=== PATIENT | female | born 1980 | race African-American/Black ===

== ENCOUNTER 2016-08-08 08:01 | Emergency (ER) | payer MEDICAID ==
[~2016-08-08] VITALS: Ht 157.5 cm; Wt 98.0 kg
[~2016-08-08 08:01] MED LIST: KENALOG 0.5% CR15 GM APPLIC; PREDNISONE20 MG ORAL
[2016-08-08] MEDS ORDERED: ACETAMINOPHEN-1 EAC1 ORAL (08:56)
[2016-08-08] MEDS ORDERED: IBUPROFEN800 MG ORAL (08:56)
[2016-08-08] MEDS ORDERED: Ketorolac 60mg Inj IM ONE (09:00)
[2016-08-08 09:21] VITALS: BP 131/89
--- NOTE | 2016-08-08 09:47 | Emergency Room Report ---
History of Present Illness General Chief Complaint: Lower Extremity Injury Source: Patient Present Illness HPI 35 YOF with left knee pain for 5 days. Denies trauma. Pain worse when standing for long time. Pain worse with flexing. Put on 20lbs recently because "I like to eat a lot." Taking 400mg ibuprofen once daily. Mother with history of OA. 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 Denies pain raditing to left hip or down left leg. Denies swelling or redness or warmth to left knee. Allergies: Coded Allergies: LATEX (Verified Allergy, Mild, 04/02/15) PENICILLIN G (Verified Allergy, Mild, 04/02/15) Patient History Past Medical History: none Pertinent Family History: none Social History: Denies: alcohol use, drug use, smoking Last Menstrual Period: 07/22/16 Now: No : 4 Para: 1 Immunizations: UTD Reviewed Nursing Documentation: PMH: Agreed, PSxH: Agreed Nursing Documentation-PMH Hx Cardiac Problems: No - ECZEMA Hx Asthma: Yes Review of Systems All Other Systems: negative except mentioned in HPI Physical Exam Vital Signs Date Time Temp Pulse Resp B/P Pulse Ox O2 Delivery O2 Flow Rate FiO2 08/08/16 08:12 98.4 86 18 138/85 100 Room Air Sp02 EP Interpretation: reviewed, normal General Appearance: normal inspection, well appearing, no apparent distress, alert, GCS 15, non-toxic, obese Head: normocephalic, atraumatic Eyes: bilateral eye EOMI, bilateral eye PERRL ENT: normal ENT inspection, hearing grossly normal, normal voice Neck: normal inspection, full range of motion, supple, no bony tend Respiratory: normal inspection, lungs clear, normal breath sounds, no respiratory distress, no retraction, no wheezing Cardiovascular #1: regular rate, rhythm, no edema Gastrointestinal: normal inspection, normal bowel sounds, non tender, soft, no guarding, no hernia Genitourinary: no CVA tenderness Musculoskeletal: normal inspection, back normal, normal range of motion, Jonh' s Sign negative, other - Left knee: No obvious swelling, redness or warmth in compared to right. ROM intact. No effusion. Neurologic: normal inspection, alert, oriented x3, responsive, pillow filler III-XII nml as tested, motor strength/tone normal, speech normal Medical Decision Making Diagnostic Impression: Primary Impression: Left knee pain Qualified Codes: M25.562 - Pain in left knee ER Course Likely MSK pain from recent significant weight increase No sign of septic joint or cellulitis Advised NSAIDs, ice, weight loss PMD followup DC home Last Vital Signs Date Time Temp Pulse Resp B/P Pulse Ox O2 Delivery O2 Flow Rate FiO2 08/08/16 09:30 98.5 08/08/16 09:21 73 18 131/89 100 Room Air Status: improved Disposition: HOME, SELF-CARE Condition: Improved Scripts Acetaminophen With Codeine (T#3) (TYLENOL #3 TAB*) Y Tab 1 TAB ORAL Q8H Y for For Pain, #30 TAB Prov: YOLIE DAUGHERTY M.D. 08/08/16 Ibuprofen* (MOTRIN*) 800 Mg Tablet 800 MG ORAL THREE TIMES A DAY for For Pain, #30 TAB 0 Refills Prov: YOLIE DAUGHERTY M.D. 08/08/16 Referrals: [facility]ERR[facility] (PCP) Patient Instructions: Musculoskeletal Pain Additional Instructions: - apply ice to area of pain 3-4x a day for pain - Alternate Ibuprofen with Tylenol #3 every 4-6 hours for pain, take with food - T#3 can be best taken at night, will help you sleep - Do NOT drive after taking T3 - Try your best to lose weight to reduce the weight/pressure on your knee YOLIE DAUGHERTY M.D. Aug 08, 2016 09:47
== END 2016-08-08 09:45 | disposition home or self-care (01) ==
LOC: EMR 08:59
DX: M25.562 Pain in left knee (principal); Z88.0 Allergy status to penicillin; Z91.040 Latex allergy status
CPT/HCPCS: 96372; 99284

== ENCOUNTER 2017-12-04 00:14 | Emergency (ER) | payer MEDICAID ==
[~2017-12-04] VITALS: Ht 157.5 cm; Wt 81.6 kg
[~2017-12-04 00:14] MED LIST changes: +ACETAMINOPHEN-1 EAC1 ORAL; +IBUPROFEN800 MG ORAL
--- NOTE | 2017-12-04 00:21 | Emergency Room Report ---
History of Present Illness General Chief Complaint: Dyspnea/Respdistress Source: Patient Present Illness HPI Patient 37-year-old female who presented after increased difficulty breathing and abdominal pain. Patient was having increased had difficulty breathing and abdominal pain. Patient reports having prior history of asthma. She takes albuterol. She had prior history of eczema. The patient noted to have allergy to latex as well as penicillin. Allergies: Coded Allergies: SHELLFISH DERIVED (Verified Allergy, Severe, Anaphylaxis, 12/04/17) LATEX (Verified Allergy, Mild, 12/04/17) PENICILLIN G (Verified Allergy, Mild, 12/04/17) PEANUT (Verified Allergy, Unknown, Shortness of Breath, 12/04/17) Patient History Past Medical History: see triage record Last Menstrual Period: unk Reviewed Nursing Documentation: PMH: Agreed; PSxH: Agreed Nursing Documentation-PMH Past Medical History: No History, Except For Hx Cardiac Problems: No - ECZEMA Hx Asthma: Yes Review of Systems All Other Systems: negative except mentioned in HPI Physical Exam Vital Signs Date Time Temp Pulse Resp B/P (MAP) Pulse Ox O2 Delivery O2 Flow Rate FiO2 12/04/17 00:17 123 24 100 Room Air Sp02 EP Interpretation: reviewed, normal General Appearance: normal inspection, well appearing, no apparent distress, alert, GCS 15 Head: atraumatic ENT: normal ENT inspection, hearing grossly normal, normal voice Neck: normal inspection, full range of motion, supple, no bony tend Respiratory: normal inspection, lungs clear, normal breath sounds, no respiratory distress, no retraction, no wheezing Cardiovascular #1: regular rate, rhythm, no edema Gastrointestinal: normal inspection, normal bowel sounds, non tender, soft, no guarding, no hernia Genitourinary: no CVA tenderness Musculoskeletal: normal inspection, back normal, normal range of motion Neurologic: normal inspection, alert, oriented x3, responsive, speech normal Psychiatric: normal inspection, judgement/insight normal, mood/affect normal Skin: no rash, other - eczematous changes to hands Medical Decision Making Diagnostic Impression: Primary Impression: Asthma exacerbation ER Course Patient presented for shortness of breath.Differential included but was not limited to anemia, pneumonia, pneumothorax, myocardial infarction, pericardial effusion, congestive heart failure, acidosis. Because of complexity of patient' s case laboratory testing and imaging studies were ordered.The patient was given breathing treatments as well as IV steroids with improvement in her symptoms. Laboratory testing was notable for mildly elevated white blood count and elevated eosinophil level consistent with asthma. The patient was noted to have improvement symptoms after medications. Patient is given prescription for albuterol as well as oral steroids. A chest x-ray one view interpreted by me showed normal cardiac size without evident infiltrate or pneumothorax.The patient is advised to follow up with primary care doctor in 1-2 days. Patient is advised to return if any worsening condition or if any changes in status that are concerning. This report is dictated with [employer] skin lap bonder software which may occasionally lead to discrepancies related to use of this software. Last Vital Signs Date Time Temp Pulse Resp B/P (MAP) Pulse Ox O2 Delivery O2 Flow Rate FiO2 12/04/17 00:17 123 24 100 Room Air Scripts Albuterol Sulfate* (ALBUTEROL SULFATE MDI*) 8.5 Gm Hfa.aer.ad 2 PUFF INH Q4H PRN for cough/wheezing, #1 EA 0 Refills Prov: Carlos Mcguire MD 12/04/17 Prednisone* (PREDNISONE*) 20 Mg Tablet 40 MG ORAL DAILY, #10 TAB Prov: Carlos Mcguire MD 12/04/17 Carlos Mcguire MD Dec 04, 2017 00:21
[2017-12-04 00:28] VITALS: BP 121/106
[2017-12-04] MEDS ORDERED: Albuterol/Ipratropium 3ml neb HHN ONE (00:30)
[2017-12-04] MEDS ORDERED: Solu-MEDROL 125mg Inj IVP ONE (00:30)
[2017-12-04 00:38] LABS: BASOPHILS % (AUTO) 1.3 % (0.0-2.0); EOSINOPHILS % (AUTO) 3.6 % (0.0-3.0); HEMATOCRIT 49.2 % (37.0-47.0); HEMOGLOBIN 16.1 G/DL (12.0-16.0); LYMPHOCYTES % (AUTO) 24.8 % (20.0-45.0); MEAN CORPUSCULAR VOLUME 84 FL (80-99); MONOCYTES % (AUTO) 5.5 % (1.0-10.0); NEUTROPHILS % (AUTO) 64.7 % (45.0-75.0); PLATELET COUNT 364 K/UL (150-450); RED BLOOD COUNT 5.84 M/UL (4.20-5.40); RED CELL DISTRIBUTION WIDTH 11.6 % (11.6-14.8); WHITE BLOOD COUNT 11.8 K/UL (4.8-10.8)
[2017-12-04 00:47] LABS: ANION GAP 9 mmol/L (5-15); BLOOD UREA NITROGEN 11 mg/dL (7-18); CALCIUM 8.9 MG/DL (8.5-10.1); CARBON DIOXIDE 26 MMOL/L (21-32); CHLORIDE 101 MMOL/L (98-107); CREATININE 0.9 MG/DL (0.55-1.30); POTASSIUM 3.4 MMOL/L (3.5-5.1); SODIUM 136 MMOL/L (136-145)
[2017-12-04 00:52] LABS: ALANINE AMINOTRANSFERASE 26 U/L (12-78); ALBUMIN 3.9 G/DL (3.4-5.0); ALBUMIN/GLOBULIN RATIO 0.8 (1.0-2.7); ALKALINE PHOSPHATASE 115 U/L (46-116); ASPARTATE AMINO TRANSFERASE 16 U/L (15-37); BILIRUBIN,TOTAL 0.4 MG/DL (0.2-1.0)
[2017-12-04] MEDS ORDERED: Sodium Chloride 500ML 500 ML IV ONE (01:00)
[2017-12-04 01:34] LABS: APPEARANCE,URINE CLEAR; BILIRUBIN, URINE NEGATIVE (NEGATIVE); COLOR,URINE PALE YELLOW; GLUCOSE, URINE (UA) NEGATIVE (NEGATIVE); KETONES,URINE NEGATIVE (NEGATIVE); LEUKOCYTE ESTERASE ,URINE 1+ (NEGATIVE); NITRITE,URINE NEGATIVE (NEGATIVE); PH,URINE 8 (4.5-8.0); PROTEIN,URINE NEGATIVE (NEGATIVE); UROBILINOGEN,URINE 1 MG/DL (0.0-1.0)
[2017-12-04 01:38] VITALS: BP 129/61
[2017-12-04] MEDS ORDERED: Albuterol ud Inhalation HHN ONE (01:45)
[2017-12-04] MEDS ORDERED: PREDNISONE20 MG ORAL (02:19)
[2017-12-04] MEDS ORDERED: ALBUTEROL SULF8.5 GM INH (02:19)
[2017-12-04 02:27] VITALS: BP 115/71
--- NOTE | 2017-12-04 10:58 | Diagnostic Imaging Report ---
Indication: Shortness of breath Technique: XRAY Chest 1v Comparison: None Findings: Heart size and mediastinal contours are within normal limits for technique. There is no focal consolidation, pneumothorax or pleural effusion. Osseous structures demonstrate no acute abnormality. Impression: No radiographic evidence of acute cardiopulmonary disease.
--- NOTE | 2017-12-05 00:35 | Cardiology Report ---
APPROVED REPORT EKG Measurement Heart [id number] SC 130P-3 [id number] Sinus tachycardia Otherwise normal ECG
== END 2017-12-04 02:27 | disposition home or self-care (01) ==
LOC: EMR 00:36
DX: J45.901 Unspecified asthma with (acute) exacerbation (principal); R10.9 Unspecified abdominal pain; Z91.040 Latex allergy status; Z91.010 Allergy to peanuts; Z88.0 Allergy status to penicillin; Z91.013 Allergy to seafood
CPT/HCPCS: 36415; 71045; 80053; 81003; 81025; 83690; 85025; 85610; 85730; 93005; 94640; 94664; 96360; 96374; 99284; J2405; J2930; J7040; J7620

== ENCOUNTER 2018-02-22 00:01 | Emergency (ER) | payer MEDICAID ==
[~2018-02-22] VITALS: Ht 157.5 cm; Wt 99.8 kg
[~2018-02-22 00:01] MED LIST changes: +ALBUTEROL SULF8.5 GM INH
[2018-02-22 00:40] VITALS: BP 140/66
[2018-02-22] MEDS ORDERED: DiphenhydrAMINE 50mg/ml Inj IM ONE (00:45)
[2018-02-22] MEDS ORDERED: DIPHENHYDRAMINE25 M1 ORAL (01:27)
[2018-02-22] MEDS ORDERED: PREDNISONE20 MG ORAL (01:27)
[2018-02-22] MEDS ORDERED: EPIPEN 2-P0.3 MG/0.3 IM (01:27)
[2018-02-22] MEDS ORDERED: RANITIDINE HCL150 MG ORAL (01:27)
[2018-02-22 01:30] VITALS: BP 140/66
--- NOTE | 2018-02-22 02:07 | Emergency Room Report ---
History of Present Illness General Chief Complaint: Allergic Reaction Source: Patient, Medical Record Present Illness HPI 37-year-old female presents ED for evaluation. States she is experiencing allergic reaction. Complaining of itchiness to her arms and chest and itchiness in her throat. Started tonight shortly after dinner. States that she ate at a new restaurant. Notes multiple food and drug allergies but states that she is not sure what caused her symptoms tonight. Took Benadryl just prior to arrival without significant relief. Denies any shortness of breath at this time. Denies any tongue swelling. No other aggravating relieving factors. Denies any other associated symptoms Allergies: Coded Allergies: SHELLFISH DERIVED (Verified Allergy, Severe, Anaphylaxis, 12/04/17) LATEX (Verified Allergy, Mild, 12/04/17) PENICILLIN G (Verified Allergy, Mild, 12/04/17) PEANUT (Verified Allergy, Unknown, Shortness of Breath, 12/04/17) Patient History Past Medical History: asthma Past Surgical History: none Pertinent Family History: none Social History: Denies: smoking, alcohol use, drug use Last Menstrual Period: 01/31/2018 Now: No : 1 Para: 1 Immunizations: UTD Reviewed Nursing Documentation: PMH: Agreed; PSxH: Agreed Nursing Documentation-PMH Hx Cardiac Problems: No - ECZEMA Hx Asthma: Yes Review of Systems All Other Systems: negative except mentioned in HPI Physical Exam Vital Signs Date Time Temp Pulse Resp B/P (MAP) Pulse Ox O2 Delivery O2 Flow Rate FiO2 02/22/18 00:22 98.2 88 15 140/66 97 Room Air 98.2 Sp02 EP Interpretation: reviewed, normal General Appearance: no apparent distress, alert, GCS 15, non-toxic, obese Head: normocephalic, atraumatic Eyes: bilateral eye normal inspection, bilateral eye PERRL ENT: other - no tongue swelling Neck: other - no stridor Respiratory: chest non-tender, lungs clear, normal breath sounds, speaking full sentences Cardiovascular #1: regular rate, rhythm, no edema Cardiovascular #2: 2+ carotid (R), 2+ carotid (L), 2+ radial (R), 2+ radial (L) , 2+ dorsalis pedis (R), 2+ dorsalis pedis (L) Gastrointestinal: normal inspection Rectal: deferred Genitourinary: normal inspection, no CVA tenderness Musculoskeletal: back normal, gait/station normal, normal range of motion, non- tender Neurologic: alert, oriented x3, responsive, motor strength/tone normal, sensory intact, speech normal Psychiatric: judgement/insight normal, memory normal, mood/affect normal, no suicidal/homicidal ideation Reflexes: 3+ bicep (R), 3+ bicep (L), 3+ tricep (R), 3+ tricep (L), 3+ knee (R) , 3+ knee (L) Skin: other - urticaria Lymphatic: no adenopathy Medical Decision Making Diagnostic Impression: Primary Impression: Allergic reaction Qualified Codes: T78.40XA - Allergy, unspecified, initial encounter ER Course Hospital Course 37-year-old female presents to ED complaining of throat itching, urticarial rash after eating food. Differential diagnoses include: allergic reaction, angioedema, anaphylaxis Clinical course Patient placed on stretcher. nurse monitoring. After initial history and physical, I ordered IM benedryl, prednisone, pepcid Upon reassessment patient states she feels better. Urticarial rash is slowly resolving. Patient states she feels less itchy. Discussed case with patient. Recommend that she return to health advisor for additional testing. Also we will prescribe her EpiPen given her severe allergies i. I feel this is a highly complex case requiring extensive working including EKG/Rhythm strip, Xray/CT/US, Blood/urine lab work, repeat exams while in ED, and administration of strong opiates/narcotics for pain control, admission to hospital or close patient follow up. Diagnosis - allergic reaction Stable and discharged to home with prescriptions for Zantac, prednisone, Benadryl, epipen. Followup with PMD. Return to ED if symptoms recur or worsen Last Vital Signs Date Time Temp Pulse Resp B/P (MAP) Pulse Ox O2 Delivery O2 Flow Rate FiO2 02/22/18 00:22 98.2 88 15 140/66 97 Room Air 98.2 Status: improved Disposition: HOME, SELF-CARE Condition: Stable Scripts Epinephrine (Epipen 2-Juan M) 0.3 Mg/0.3 Ml Auto.injct 0.3 MG IM ONCE, #2 EA Prov: José Miguel Anaya MD 02/22/18 Diphenhydramine Hcl* (DIPHENHYDRAMINE HCL*) 25 Mg Capsule 25 MG ORAL Q6H PRN for Itching, #30 CAP 0 Refills Prov: José Miguel Anaya MD 02/22/18 Ranitidine Hcl* (ZANTAC*) 150 Mg Tablet 150 MG ORAL TWICE A DAY, #30 TAB Prov: José Miguel Anaya MD 02/22/18 Prednisone* (PREDNISONE*) 20 Mg Tablet 40 MG ORAL DAILY, #10 TAB Prov: José Miguel Anaya MD 02/22/18 Referrals: NON PHYSICIAN (PCP) Patient Instructions: Food Allergy, [id number] José Miguel Anaya MD Feb 22, 2018 02:06
== END 2018-02-22 01:30 | disposition home or self-care (01) ==
LOC: EMR 00:57
DX: T78.40XA Allergy, unspecified, initial encounter (principal); X58.XXXA Exposure to other specified factors, initial encounter; L29.9 Pruritus, unspecified; Z91.040 Latex allergy status; Z91.010 Allergy to peanuts; Z88.0 Allergy status to penicillin; Z91.013 Allergy to seafood; J45.909 Unspecified asthma, uncomplicated
CPT/HCPCS: 96372; 99283; J1200; J7512

== ENCOUNTER 2018-12-01 15:40 | Emergency (ER) | payer MEDICAID ==
[~2018-12-01] VITALS: Ht 157.5 cm; Wt 106.6 kg
[~2018-12-01 15:40] MED LIST changes: +DIPHENHYDRAMINE25 M1 ORAL; +EPIPEN 2-P0.3 MG/0.3 IM; +RANITIDINE HCL150 MG ORAL
[2018-12-01 15:48] VITALS: BP 151/88
--- NOTE | 2018-12-01 16:16 | Emergency Room Report ---
History of Present Illness General Chief Complaint: Skin Rash/Abscess Source: Medical Record Present Illness HPI 38-year-old female presents to the emergency department complaining of 5 out of 10 severity painful, itchy, swelling and erythema to the medial aspect of the left leg since last night. Patient states she got bit by something while at the store. Patient denies fevers or chills she denies recent travel or ill contacts. Patient reports that she is 9 weeks and she was not sure what she is allowed to take as far as medication zimmerman for allergic reactions. Patient reports that she gets significant allergic reactions with insect bites. Reports warmth which is a new onset and continued progression of the area of redness. Pt. denies lesions/rashes elsewhere on the body. Denies new medications or body washes or creams. Denies swelling of the lips, tongue , throat or airway. Denies wheezing, or shortness of breath. Denies recent travel , recent illness or ill contacts. denies blisters, oral lesions, or sloughing of the skin Allergies: Coded Allergies: SHELLFISH DERIVED (Verified Allergy, Severe, Anaphylaxis, 12/04/17) LATEX (Verified Allergy, Mild, 12/04/17) PENICILLIN G (Verified Allergy, Mild, 12/04/17) PEANUT (Verified Allergy, Unknown, Shortness of Breath, 12/04/17) Patient History Past Medical History: see triage record Past Surgical History: none Pertinent Family History: none Last Menstrual Period: 10/01/18 Now: No Reviewed Nursing Documentation: PMH: Agreed; PSxH: Agreed Nursing Documentation-PMH Hx Cardiac Problems: No - ECZEMA Hx Asthma: Yes Review of Systems All Other Systems: negative except mentioned in HPI Physical Exam Vital Signs Date Time Temp Pulse Resp B/P (MAP) Pulse Ox O2 Delivery O2 Flow Rate FiO2 12/01/18 15:43 98.4 91 18 151/88 (109) 98 Room Air Sp02 EP Interpretation: reviewed, normal General Appearance: no apparent distress, alert, GCS 15, non-toxic Head: normocephalic, atraumatic Eyes: bilateral eye normal inspection, bilateral eye PERRL ENT: hearing grossly normal, no angioedema, normal voice Neck: full range of motion Respiratory: chest non-tender, lungs clear, normal breath sounds, no wheezing, speaking full sentences Cardiovascular #1: regular rate, rhythm, no edema Musculoskeletal: back normal, gait/station normal, normal range of motion, non- tender Neurologic: alert, oriented x3, responsive, motor strength/tone normal, sensory intact, normal gait, speech normal, grossly normal Psychiatric: judgement/insight normal Skin: rash - large area of erythema, warmth, and swelling on the medial left calf/knee, no palpable fluctuance. no blisters or vessicles. erythema blances on the edges. Lymphatic: no adenopathy Medical Decision Making PA Attestation Dr. Dixon is my supervising Physician whom patient management has been discussed with. Diagnostic Impression: Primary Impression: Allergic reaction Qualified Codes: T78.40XA - Allergy, unspecified, initial encounter Additional Impression: Cellulitis Qualified Codes: L03.116 - Cellulitis of left lower limb ER Course 38-year-old female presents to the emergency department complaining of 5 out of 10 severity painful, itchy, swelling and erythema to the medial aspect of the left leg since last night. Patient states she got bit by something while at the store. Patient denies fevers or chills she denies recent travel or ill contacts. Patient reports that she is 9 weeks and she was not sure what she is allowed to take as far as medication zimmerman for allergic reactions. Patient reports that she gets significant allergic reactions with insect bites. Reports warmth which is a new onset and continued progression of the area of redness. Pt. denies lesions/rashes elsewhere on the body. Denies new medications or body washes or creams. Denies swelling of the lips, tongue , throat or airway. Denies wheezing, or shortness of breath. Denies recent travel , recent illness or ill contacts. denies blisters, oral lesions, or sloughing of the skin Ddx considered but are not limited to cellulitis, allergic reaction, angio edema , abscess Vital signs: are WNL, pt. is afebrile H&PE are most consistent with allergic reaction and secondary cellulitis ORDERS: none required at this time, the diagnosis is clinical ED INTERVENTIONS: none DISCHARGE: At this time pt. is stable for d/c to home. Will provide printed patient care instructions, and any necessary prescriptions. Care plan and follow up instructions have been discussed with the patient prior to discharge. Last Vital Signs Date Time Temp Pulse Resp B/P (MAP) Pulse Ox O2 Delivery O2 Flow Rate FiO2 12/01/18 15:48 98.4 91 18 151/88 98 Room Air Disposition: HOME, SELF-CARE Condition: Stable Scripts Bacitracin/Polymyxin B Sulfate (BACITRACIN-POLYMYXIN OINTMENT) 28.35 Gm Oint...g. 1 APPLIC TP BID, #28.3 GM Prov: Dona Rios 12/01/18 Cephalexin* (KEFLEX*) 500 Mg Capsule 500 MG ORAL EVERY 12 HOURS for 7 Days, #14 CAP 0 Refills Prov: Dona Rios 12/01/18 Diphenhydramine Hcl (BENADRYL ALLERGY) 25 Mg Tablet 25 MG PO Q6HR, #20 TAB Prov: Dona Rios 12/01/18 Patient Instructions: Cellulitis, [id number], Rash Additional Instructions: Take medications as directed. Follow up with a Primary Care Provider/ OBGYN in 3-5 days, even if your symptoms have resolved. --Please review list of primary care clinics, if you do not already have a primary care provider Return sooner to ED if new symptoms occur, or current symptoms become worse. - Please note that this Emergency Department Report was dictated using [employer] machine operator technology software, occasionally this can lead to erroneous entry secondary to interpretation by the dictation equipment. Dona Rios Dec 01, 2018 16:16
[2018-12-01] MEDS ORDERED: ANTI-ITCH28 G1 TP (16:21)
[2018-12-01] MEDS ORDERED: CEPHALEXIN500 MG ORAL (16:21)
[2018-12-01] MEDS ORDERED: BENADRYL ALLERG25 M1 PO (16:21)
[2018-12-01] MEDS ORDERED: BACITRACIN-P28.35 GM TP (16:23)
[2018-12-01 16:29] VITALS: BP 151/88
== END 2018-12-01 16:29 | disposition home or self-care (01) ==
LOC: EMR 16:13
DX: T78.40XA Allergy, unspecified, initial encounter (principal); O26.891 Other specified pregnancy related conditions, first trimester; Z3A.09 9 weeks gestation of pregnancy; L03.116 Cellulitis of left lower limb; Z91.040 Latex allergy status; Z91.010 Allergy to peanuts; Z91.013 Allergy to seafood; Z88.0 Allergy status to penicillin
CPT/HCPCS: 99282

== ENCOUNTER 2019-05-16 07:48 | Emergency (ER) | payer MEDICAID ==
[~2019-05-16] VITALS: Ht 157.5 cm; Wt 108.0 kg
[~2019-05-16 07:48] MED LIST changes: +ANTI-ITCH28 G1 TP; +BACITRACIN-P28.35 GM TP; +BENADRYL ALLERG25 M1 PO; +CEPHALEXIN500 MG ORAL
[2019-05-16] MEDS ORDERED: MINI PRENATAL1 EACH PO (07:59)
[2019-05-16] MEDS ORDERED: ALBUTEROL2.5 MG/3 M INH (07:59)
[2019-05-16] MEDS ORDERED: D5NS 1,000 ML IV ONE (08:00)
--- NOTE | 2019-05-16 08:20 | NUR ---
ED Nurse Note: Pt came in from home w/ c/o vaginal discharge with pink and brown discharge. Pt is 32 weeks , pt states discharge was at 0100 today. Pt denies pain, no N&V. Pt set up on monitor. No acute distress. Blood and urine lab sent to lab.
--- NOTE | 2019-05-16 08:34 | Emergency Room Report ---
History of Present Illness General Chief Complaint: Complications Source: Patient Present Illness HPI 38-year-old female, G5, P1, A3 32 weeks , presents with gush of fluid that started at 1 AM, no active abdominal pain or contractions, no aggravating relieving factors severity is mild, patient denies any fevers chills urinary symptoms, patient just noticed clear fluid pooling. Patient in the past had a complication of her first where she had a rupture of membranes, and had a prolonged hospital stay requiring antibiotics. Allergies: Coded Allergies: SHELLFISH DERIVED (Verified Allergy, Severe, Anaphylaxis, 12/04/17) LATEX (Verified Allergy, Mild, 12/04/17) PENICILLIN G (Verified Allergy, Mild, 12/04/17) PEANUT (Verified Allergy, Unknown, Shortness of Breath, 12/04/17) Patient History Past Medical History: see triage record Now: Yes - 8 MONTHS : 5 Reviewed Nursing Documentation: PMH: Agreed; PSxH: Agreed Nursing Documentation-PMH Past Medical History: No History, Except For Hx Cardiac Problems: No - ECZEMA Hx Asthma: Yes Review of Systems All Other Systems: negative except mentioned in HPI Physical Exam Vital Signs Date Time Temp Pulse Resp B/P (MAP) Pulse Ox O2 Delivery O2 Flow Rate FiO2 05/16/19 07:54 98.2 104 18 142/84 (103) 99 Room Air Sp02 EP Interpretation: reviewed, normal General Appearance: well appearing, no apparent distress, alert Head: normocephalic, atraumatic Eyes: bilateral eye PERRL, bilateral eye EOMI ENT: uvula midline, moist mucus membranes Neck: supple, thyroid normal, supple/symm/no masses Respiratory: lungs clear, no respiratory distress, no retraction, no accessory muscle use Cardiovascular #1: normal peripheral pulses, regular rate, rhythm, no edema, no gallop, no murmur Gastrointestinal: non tender, soft, no guarding, no rebound Genitourinary: other - 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 During the course of the patient's stay, I spent a considerable amount of time at the bedside performing serial re-evaluations of the patient's hemodynamic and clinical status because of the recognized potential threat to life or limb in this condition. I then had a chance to review not only all of the available current laboratory and radiographic studies obtained today, but I also reviewed old records available to me at the time. Additionally, any ancillary information available including foreign language interpreter records were reviewed. Sequential vital signs were obtained. Critical Care time of 31 minutes was performed exclusive of billable procedures. Medical Decision Making Diagnostic Impression: Primary Impression: Premature rupture of membranes Qualified Codes: O42.911 - premature rupture of membranes, unspecified as to length of time between rupture and onset of labor, first trimester Additional Impression: labor Qualified Codes: O60.03 - labor without delivery, third trimester ER Course 38-year-old female presents with premature rupture of membranes, patient is not in active labor, no contractions, cervix is 1 cm dilated, differential diagnosis includes labor, active labor, premature rupture of membranes, amniotic infection No acute indication for antibiotics, patient remained stable 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 Warren Tran Tammie accepted, patient to be given ampicillin and erythromycin, patient tolerated amoxicillin in the past, is allergic to penicillin. Reevaluation 10:29 AM, patient asymptomatic without contractions Evaluation 10:43AM [facility] is at bedside to transport patient Patient remains stable without any signs of active labor. Laboratory Tests Test 05/16/19 08:14 White Blood Count 6.0 K/UL (4.8-10.8) Red Blood Count 5.12 M/UL (4.20-5.40) Hemoglobin 14.2 G/DL (12.0-16.0) Hematocrit 43.4 % (37.0-47.0) Mean Corpuscular Volume 85 FL (80-99) Mean Corpuscular Hemoglobin 27.8 PG (27.0-31.0) Mean Corpuscular Hemoglobin Concent 32.8 G/DL (32.0-36.0) Red Cell Distribution Width 11.8 % (11.6-14.8) Platelet Count 284 K/UL (150-450) Mean Platelet Volume 7.5 FL (6.5-10.1) Neutrophils (%) (Auto) 60.2 % (45.0-75.0) Lymphocytes (%) (Auto) 32.0 % (20.0-45.0) Monocytes (%) (Auto) 4.7 % (1.0-10.0) Eosinophils (%) (Auto) 2.0 % (0.0-3.0) Basophils (%) (Auto) 1.0 % (0.0-2.0) Prothrombin Time 9.5 SEC (9.30-11.50) Prothrombin Time INR 0.9 (0.9-1.1) PTT 26 SEC (23-33) Urine Color Yellow Urine Appearance Clear Urine pH 6 (4.5-8.0) Urine Specific Wilmot 1.020 (1.005-1.035) Urine Protein Negative (NEGATIVE) Urine Glucose (UA) Negative (NEGATIVE) Urine Ketones Negative (NEGATIVE) Urine Blood Negative (NEGATIVE) Urine Nitrite Negative (NEGATIVE) Urine Bilirubin Negative (NEGATIVE) Urine Urobilinogen Normal MG/DL (0.0-1.0) Urine Leukocyte Esterase Negative (NEGATIVE) Sodium Level 137 MMOL/L (136-145) Potassium Level 3.5 MMOL/L (3.5-5.1) Chloride Level 104 MMOL/L (98-107) Carbon Dioxide Level 25 MMOL/L (21-32) Anion Gap 8 mmol/L (5-15) Blood Urea Nitrogen 7 mg/dL (7-18) Creatinine 0.6 MG/DL (0.55-1.30) Estimate Glomerular Filtration Rate > 60 mL/min (>60) Glucose Level 87 MG/DL (74-106) Calcium Level 9.2 MG/DL (8.5-10.1) Total Bilirubin 0.3 MG/DL (0.2-1.0) Aspartate Amino Transferase (AST) 20 U/L (15-37) Alanine Aminotransferase (ALT) 21 U/L (12-78) Alkaline Phosphatase 194 U/L (46-116) H Total Protein 8.0 G/DL (6.4-8.2) Albumin 2.8 G/DL (3.4-5.0) L Globulin 5.2 g/dL Albumin/Globulin Ratio 0.5 (1.0-2.7) L Lipase 246 U/L (73-393) Human Chorionic Gonadotropin, Quant Pending Rhythm Strip Diag. Results Rhythm Strip Time: 09:18 EP Interpretation: yes Rate: 85 Rhythm: NSR, no PVC's, no ectopy Last Vital Signs Date Time Temp Pulse Resp B/P (MAP) Pulse Ox O2 Delivery O2 Flow Rate FiO2 05/16/19 07:54 98.2 104 18 142/84 (103) 99 Room Air Disposition: XFER SHT-TRM HOSP Condition: Stable Referrals: NON PHYSICIAN (PCP) Arnaud Smith MD May 16, 2019 08:34
[2019-05-16 08:37] LABS: APPEARANCE,URINE CLEAR; BILIRUBIN, URINE NEGATIVE (NEGATIVE); GLUCOSE, URINE (UA) NEGATIVE (NEGATIVE); HEMATOCRIT 43.4 % (37.0-47.0); HEMOGLOBIN 14.2 G/DL (12.0-16.0); KETONES,URINE NEGATIVE (NEGATIVE); LEUKOCYTE ESTERASE ,URINE NEGATIVE (NEGATIVE); MEAN CORPUSCULAR VOLUME 85 FL (80-99); MONOCYTES % (AUTO) 4.7 % (1.0-10.0); NEUTROPHILS % (AUTO) 60.2 % (45.0-75.0); NITRITE,URINE NEGATIVE (NEGATIVE); PH,URINE 6 (4.5-8.0); PLATELET COUNT 284 K/UL (150-450); PROTEIN,URINE NEGATIVE (NEGATIVE); RED BLOOD COUNT 5.12 M/UL (4.20-5.40); RED CELL DISTRIBUTION WIDTH 11.8 % (11.6-14.8); UROBILINOGEN,URINE NORMAL MG/DL (0.0-1.0)
[2019-05-16 08:40] LABS: INR 0.9 (0.9-1.1)
[2019-05-16 08:41] LABS: COLOR,URINE YELLOW
[2019-05-16 08:45] VITALS: BP 138/80
[2019-05-16 08:49] LABS: ANION GAP 8 mmol/L (5-15); BLOOD UREA NITROGEN 7 mg/dL (7-18); CALCIUM 9.2 MG/DL (8.5-10.1); CARBON DIOXIDE 25 MMOL/L (21-32); CHLORIDE 104 MMOL/L (98-107); CREATININE 0.6 MG/DL (0.55-1.30); POTASSIUM 3.5 MMOL/L (3.5-5.1); SODIUM 137 MMOL/L (136-145)
[2019-05-16 08:53] LABS: ALANINE AMINOTRANSFERASE 21 U/L (12-78); ALBUMIN 2.8 G/DL (3.4-5.0); ALBUMIN/GLOBULIN RATIO 0.5 (1.0-2.7); ALKALINE PHOSPHATASE 194 U/L (46-116); ASPARTATE AMINO TRANSFERASE 20 U/L (15-37); BILIRUBIN,TOTAL 0.3 MG/DL (0.2-1.0)
[2019-05-16] MEDS ORDERED: DiphenhydrAMINE 50mg/ml Inj IVP ONE (09:45)
[2019-05-16] MEDS ORDERED: Ampicillin 1 GM in NS 55 ML IVPB ONE (09:45)
[2019-05-16] MEDS ORDERED: Ampicillin 2 GM in NS 110 ML IVPB SCH (10:00)
[2019-05-16] MEDS ORDERED: Ampicillin 2 GM in NS 110 ML IV SCH (10:00)
[2019-05-16] MEDS ORDERED: Gentamicin inj 160 MG in NS 110 ML IVPB ONE (10:30)
--- NOTE | 2019-05-16 11:00 | NUR ---
ED Nurse Note: MD Smith states pt ready to be transferred.
--- NOTE | 2019-05-16 11:04 | NUR ---
ED Nurse Note: Report given to Danni CHOW L&D at [facility]. IV in L AC RN aware. Pt not in active labor. Pt VSS. Pt is being transferred with [id number]. All pt belongings w/ pt. Pt aware of transfer.
[2019-05-16 11:05] VITALS: BP 126/77
--- NOTE | 2019-05-16 11:06 | NUR ---
ED Nurse Note: MD Smith states oj to D/C current NS fluids.
--- NOTE | 2019-05-16 11:21 | Diagnostic Imaging Report ---
EXAM: US Second or Third Trimester , Transabdominal CLINICAL HISTORY: ABD PAIN TECHNIQUE: Real-time transabdominal obstetrical ultrasound of the maternal pelvis and a second or third trimester with image documentation. COMPARISON: None FINDINGS: Single live intrauterine gestation with cephalic presentation. The placenta is anterior fundal without evidence of previa. The amniotic fluid is severely low, limiting evaluation. Patient's LMP is reported as 10/01/2018 which corresponds to gestational age of 32 weeks 3 days giving ISSA of 07/08/2019. BPD 8.08 cm 32 weeks 3 days HC 28.14 cm 30 weeks 6 days AC 25.11 cm 29 weeks 2 days FL 5.86 cm 30 weeks 4 days By this ultrasound, estimated gestational age is 30 weeks 6 days, corresponding to a sonographic ISSA of 07/19/2019. Estimated weight is 1513 g which is at the 18th percentile. HC/AC ratio is 1.12 (normal range for this fetus is 0.94-1.19). FHR is 166 bpm. Visualized anatomy is grossly unremarkable IMPRESSION: 1. Single intrauterine with heart rate of 166 bpm. 2. Severely decreased amniotic fluid which limits evaluation. 3. Fetus is small for gestational age with average ultrasound age of 30 weeks 6 days (gestational age by LMP is 32 weeks 3 days).
== END 2019-05-16 11:05 | disposition short-term general hospital (02) ==
LOC: EMR 08:06
DX: O42.92 Full-term premature rupture of membranes, unspecified as to length of time between rupture and onset of labor (principal); O60.03 Preterm labor without delivery, third trimester; Z3A.32 32 weeks gestation of pregnancy; Z88.0 Allergy status to penicillin; Z91.040 Latex allergy status; Z91.010 Allergy to peanuts; Z91.013 Allergy to seafood
CPT/HCPCS: 36415; 76805; 80053; 81003; 83690; 84702; 85025; 85610; 85730; 86850; 86900; 86901; 87070; 87205; 87491; 87590; 96361; 96365; 96367; 96375; J1200; J7030; Z7502; 99291